=== PATIENT | female | born 1940 | race Caucasian/White ===

== ENCOUNTER 2017-01-05 11:42 | Emergency (ER) | payer MEDICARE, OTHER ==
--- NOTE | ~2017-01-05 | CT2 ---
[facility] A Service of [facility] RADIOLOGY TEXT RESULTS PATIENT: DIANELYS MAJOR LOCATION: SED : 42 UNIT #: [id number] AGE: [address]: Triston Vasquez MD SEX: F ORDER DR: [id number] [place] [id number] E MR#: [id number] Acc #: [id number] NAME: DIANELYS MAJOR : 1940 SEX: F STUDY DATE/TIME: 01/05/2017 14:00 UNIT: SED ROOM: STUDY DESCRIPTION: CT Abd and Pelv W Cont Attending Physician: Triston Vasquez M.D. Ordering Physician: Triston Vasquez M.D. Primary Care Physician: Shirley Martinez M.D. MEDICAL IMAGING REPORT This report is preliminary unless electronic signature is present. EXAM CT abdomen and pelvis with contrast 01/05/2017 1400 hours HISTORY A 76-year-old woman with abdominal pain since Sunday, nausea. Pain described as midline pain. Prior history of diverticulitis. COMPARISON 10/11/[address] images were obtained from the lung bases through the pubic symphysis with intravenous contrast. Sagittal and coronal reconstructions were performed. Contrast was Isovue-370 100 mL. Total exam 1889 mGy/cm. This CT exam was performed with one or more of the following radiation dose reduction techniques: automatic exposure control, adjustment of mA and/or kV according to patient size, and iterative reconstruction. FINDINGS Images through the lung bases demonstrate clear lungs. The heart size is at the upper limits of normal with no pericardial fluid. The distal esophagus is normal. Images through the abdomen demonstrate diffuse low attenuation of the liver relative to the spleen consistent with stable fatty infiltration. The spleen, pancreas and bile ducts are normal. The patient is post cholecystectomy. The adrenal glands are normal. The kidneys demonstrate no mass, stone or obstruction. There is no ureterectasis or ureteral calculus. [facility] A Service of [facility] RADIOLOGY TEXT RESULTS PATIENT: DIANELYS MAJOR LOCATION: SED : 42 UNIT #: [id number] AGE: [address]: Triston Vasquez MD SEX: F ORDER DR: There is mild atherosclerotic change of the abdominal aorta which is normal in caliber. There is no adenopathy or ascites. The stomach is contracted and unopacified but appears normal. There is no small bowel distension or small bowel wall thickening. The terminal ileum is normal. There is no evidence of appendicitis. The colon is nondistended. There is a moderate amount of stool present. There a few scattered diverticula in the descending colon but no colonic wall thickening. 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 There is no adnexal mass or free fluid. There are a few small benign appearing lymph nodes in both inguinal regions. IMPRESSION 1. No acute findings in the abdomen or pelvis. 2. There is fatty change in the liver similar to 10/11/2010. The gallbladder is surgically absent. 3. No renal or ureteral calculi. 4. The unopacified stomach, small bowel are normal. The appendix is normal. 5. There are a few scattered diverticula in the colon but no evidence of colonic distension or colonic wall thickening. 6. Surgical absence of the uterus. There is no adnexal mass or free fluid. 7. There is disc height loss, vacuum phenomena L4-5 with facet arthropathy resulting in 2-3 mm of anterolisthesis of L4-5 likely chronic. Dictated by... Flor Barnes M.D. THIS IS AN ELECTRONICALLY VERIFIED REPORT Flor Barnes M.D. at 01/06/2017 3:27 PM Juan Antonio TD: 01/05/2017 22:09 JOB #: [id number] MEDICAL IMAGING REPORT Page 1 of 1
[~2017-01-05 11:42] MED LIST: ALBUTEROL17 GM INH; AMARYL PO; ATENOLOL PO; AVALIDE PO; BACTRIM DS TABL1 TA1 PO; COLESTID1 GM PO; COZAAR PO; GLUCOPHAGE XR500 MG PO; HYZAAR PO; JANUMET 50-501 UDTAB PO; KLOR-CON PO; LANTUS SOLOSTAR3 ML SUBQ; LOMOTIL TABLET1 TAB PO; LOSARTAN-HCTZ1 EAC1 PO; MUCINEX D ER T1 EAC1 PO; MULTIBETIC PO; OMEPRAZOLE40 MG PO; SYNTHROID PO; ZITHROMAX PO
[2017-01-05] MEDS ORDERED: LANTUS100 U/ML (11:53)
[2017-01-05 13:15] LABS: BASOPHIL# 0.1 X10e3 (0-0.3); DIFF IND NO; EOSINOPHIL# 0.2 X10e3 (0-0.7); EOSINOPHIL% 1.9 % (0.0-7.0); HEMATOCRIT 39.3 % (35.0-45.0); HEMOGLOBIN 13.4 gm/dL (12.0-16.0); LYMPHOCYTE# 3.3 X10e3 (1.0-3.5); LYMPHOCYTE% 28.9 % (17.0-45.0); MEAN CELL VOLUME 83.7 FL (83-96); MEAN CORPUSCULAR HEMOGLOBIN 28.5 PG (28-34); MEAN CORPUSCULAR HGB CONC 34.1 g/dL (30-36); MEAN PLATELET VOLUME 8.2 FL (6.5-11.5); MONOCYTE# 1.1 X10e3 (0-1.0); MONOCYTE% 9.3 % (3.0-12.0); NEUTROPHIL# 6.8 X10e3 (1.5-7.1); NEUTROPHIL% 58.9 % (40-75); PLATELET COUNT 341 X10e3 (140-420); RED CELL DISTRIBUTION WIDTH 14.4 % (11.0-15.5); WHITE BLOOD COUNT 11.5 X10e3 (4.0-10.5)
[2017-01-05 13:46] LABS: BILIRUBIN, DIRECT 0.3 mg/dL (0.0-0.2); BILIRUBIN,INDIRECT 0.5 mg/dL (0.0-0.9); BILIRUBIN,TOTAL 0.8 mg/dL (0.2-2.0); BUN/CREATININE RATIO 22.85; CREATININE SERUM 0.7 mg/dL (0.6-1.4); GLOM FILT RATE Estimated 85.4 mL/min (>60); POTASSIUM 4.1 mmol/L (3.5-5.1); PROTEIN TOTAL SERUM 7.3 g/dL (6.0-8.3)
[2017-01-05 14:14] LABS: URINE APPEARANCE CLEAR; URINE BILIRUBIN NEG (NEG); URINE BLOOD NEG (NEG); URINE COLOR YELLOW; URINE GLUCOSE NEG (NORM); URINE KETONE NEG (NEG); URINE LEUKOCYTE ESTERASE NEG (NEG); URINE NITRATE NEG (NEG); URINE PH 5.5 (5-8); URINE PROTEIN NEG (NEG); URINE SOURCE CLEAN CATCH; URINE UROBILINOGEN 0.2 MG/DL (NORM)
[2017-01-05 14:18] LABS: MICRO INDICATED? NO
== END 2017-01-05 15:45 | disposition home or self-care (01) ==
LOC: SED 11:42
PROVIDERS: Emergency Medicine
DX: K21.9 Gastro-esophageal reflux disease without esophagitis (principal); Z90.49 Acquired absence of other specified parts of digestive tract; Z90.710 Acquired absence of both cervix and uterus; Z88.0 Allergy status to penicillin; I10 Essential (primary) hypertension; Z87.891 Personal history of nicotine dependence; E66.9 Obesity, unspecified; Z98.890 Other specified postprocedural states; Z88.1 Allergy status to other antibiotic agents
CPT/HCPCS: 36415; 74177; 80048; 80076; 81003; 82150; 83605; 83690; 84703; 85025; 96361; 96374; 96375; 99284; C9113; J1885; J2405; Q9967